=== PATIENT | female | born 1965 | race Caucasian/White ===

== ENCOUNTER 2018-11-10 14:06 | Emergency (ER) | payer MEDICARE, MEDICAID ==
[2018-11-10] MEDS ORDERED: ONDANSETRON HCL INJ/PF 4 MG/2 ML SDV IV ONE (14:47)
[2018-11-10] MEDS ORDERED: FENTANYL CITRATE INJ/PF 100 MCG/2 ML AMPUL IV ONE (14:47)
--- NOTE | 2018-11-10 14:49 | ER Document Report ---
ED Medical Screen (RME) - General Chief Complaint: Flank Pain Stated Complaint: LEFT FLANK PAIN Time Seen by Provider: 11/10/18 14:39 Primary Care Provider: MICHELLE YO [Primary Care Provider] - Follow up as needed Mode of Arrival: Ambulatory Information source: Patient Notes: 53-year-old female presents emergency department with complaints of left flank pain that started last night. Patient states that she feels like she is going to "explode out of the back". She denies any radiation of the pain. She denies any alleviating or exacerbating factors. She states that she began having some dysuria a few hours ago but denies any increased urgency, increased frequency, fever, chills, abdominal pain. She denies a history of kidney stones. I have greeted and performed a rapid initial assessment of this patient. A comprehensive ED assessment and evaluation of the patient, analysis of test results and completion of the medical decision making process will be conducted by additional ED providers. PHYSICAL EXAMINATION: GENERAL: Well-appearing, well-nourished HEAD: Atraumatic, normocephalic. EYES: Pupils equal round extraocular movements intact, conjunctiva are normal. ENT: Nares patent NECK: Normal range of motion LUNGS: No respiratory distress Musculoskeletal: Normal range of motion. L flank tenderness with palpation. NEUROLOGICAL: Normal speech. PSYCH: Normal mood, normal affect. TRAVEL OUTSIDE OF THE [place] IN LAST 30 DAYS: No - Related Data Allergies/Adverse Reactions: No Known Allergies Allergy (Verified 11/10/18 14:07) Past Medical History - Past Medical History Cardiac Medical History: Reports: Hx Atrial Fibrillation Pulmonary Medical History: Reports: Hx Tuberculosis Endocrine Medical History: Reports: Hx Graves' Disease, Hx Hypothyroidism Renal/ Medical History: Denies: Hx Peritoneal Dialysis GI Medical History: Reports: Hx Gastroesophageal Reflux Disease Musculoskeltal Medical History: Reports Hx Arthritis Psychiatric Medical History: Reports: Hx Anxiety, Hx Depression Past Surgical History: Reports: Hx Section, Hx Cholecystectomy - Immunizations Hx Diphtheria, Pertussis, Tetanus Vaccination: No Physical Exam - Vital signs Vitals: Temp Pulse Resp BP Pulse Ox 99.1 F 71 16 115/59 L 100 11/10/18 14:22 11/10/18 14:22 11/10/18 14:22 11/10/18 14:22 11/10/18 14:22 Course - Vital Signs Vital signs: Temp Pulse Resp BP Pulse Ox 99.1 F 71 16 115/59 L 100 11/10/18 14:22 11/10/18 14:22 11/10/18 14:22 11/10/18 14:22 11/10/18 14:22 Doctor's Discharge - Discharge Referrals: LOCALMD,NO [Primary Care Provider] - Follow up as needed
[2018-11-10 15:40] LABS: APPEARANCE,URINE CLOUDY; BILIRUBIN,URINE NEGATIVE (NEGATIVE); COLOR,URINE YELLOW; GLUCOSE, URINE NEGATIVE (NEGATIVE); KETONES,URINE NEGATIVE (NEGATIVE); LEUKOCYTE ESTERASE,URINE MODERATE (NEGATIVE); NITRITE,URINE NEGATIVE (NEGATIVE); PROTEIN,URINE NEGATIVE (NEGATIVE); URINE SPECIFIC GRAVITY 1.014; UROBILINOGEN,URINE NEGATIVE mg/dL (<2.0)
[2018-11-10 15:52] LABS: HEMATOCRIT 34.3 % (36.0-47.0); HEMOGLOBIN 11.5 g/dL (12.0-15.5); MEAN CORPUSCULAR HEMOGLOBIN 29.4 pg (27.0-33.4); MEAN CORPUSCULAR HGB CONC 33.5 g/dL (32.0-36.0); MEAN CORPUSCULAR VOLUME 88 fl (80-97); PLATELET COUNT 313 10^3/uL (150-450); RED BLOOD COUNT 3.91 10^6/uL (3.72-5.28); RED CELL DISTRIBUTION WIDTH 13.9 % (11.5-14.0); WHITE BLOOD COUNT 18.5 10^3/uL (4.0-10.5)
--- NOTE | 2018-11-10 15:52 | RADIOLOGY REPORT (SQ) ---
EXAM DESCRIPTION: CT ABD/PELVIS NO ORAL OR IV COMPLETED DATE/TIME: 11/10/2018 3:24 pm REASON FOR STUDY: left flank pain COMPARISON: None. TECHNIQUE: CT scan of the abdomen and pelvis performed without intravenous or oral contrast. Images reviewed with lung, soft tissue, and bone windows. Reconstructed coronal and sagittal MPR images revi ewed. All images stored on PACS. All CT scanners at this facility use dose modulation, iterative reconstruction, and/or weight based d osing when appropriate to reduce radiation dose to as low as reasonably achievable (ALARA). [facility]: Dose Right [facility]: CareDose [facility]: Dose Right [facility]: Teradose 4D [facility]: [employer] RADIATION DOSE: CT Rad equipment meets quality standard of care and radiation dose reduction techniq ues were employed. CTDIvol: 5.0 mGy. DLP: 257 mGy-cm.mGy. LIMITATIONS: None. FINDINGS: LOWER CHEST: Acinar type infiltrates in lower lobes pneumonia not excluded. NON-CONTRASTED LIVER, SPLEEN, ADRENALS: LIVER: No abnormality. SPLEEN: No abnormality. ADRENALS: No abnormality. PANCREAS: No abnormality. . GALLBLADDER: Status post cholecystectomy. . RIGHT KIDNEY AND URETER: No abnormality. LEFT KIDNEY AND URETER: There is dilatation of the left upper collecting system and left ureter down to a 5 mm distal left ureteral calculus. AORTA AND RETROPERITONEUM: No aneurysm. No retroperitoneal masses or adenopathy. BOWEL AND PERITONEAL CAVITY: Dilatation of the distal esophagus with prominent air-fluid level consis tent with esophageal reflux. Lap band encircling upper stomach. PELVIS, BLADDER, AND ABDOMINAL WALL:No abnormal masses. No free fluid. Bladder normal. BONES: Lumbar spondylosis. Degenerative distal to the L3-S1. IMPRESSION: 1. Evidence left hydronephrosis and left hydroureter down to 5 mm distal left ureteral calculus. 2. Status post lap band with mild dilatation of the distal esophagus and moderate amount of fluid in the esophagus consistent with esophageal reflux. 3. Bibasilar infiltrates with pneumoni a not excluded. COMMENT: Quality ID # [id number]: Final reports with documentation of one or more dose reduction techniques (e.g., Automated exposure control, adjustment of the mA and/or kV according to patient size, use of iterative reconstruction technique) TECHNICAL DOCUMENTATION: JOB ID: [id number] SC-69 2010 [employer]- All Rights Reserved Reading location - IP/workstation name: [email or web address]
[2018-11-10 15:54] LABS: ALANINE AMINOTRANSFERASE 17 U/L (9-52); ALBUMIN 3.8 g/dL (3.5-5.0); ALKALINE PHOSPHATASE 56 U/L (38-126); ANION GAP 10 (5-19); ASPARTATE AMINO TRANSFERASE 10 U/L (14-36); BILIRUBIN,DIRECT 0.2 mg/dL (0.0-0.4); BILIRUBIN,TOTAL 0.6 mg/dL (0.2-1.3); BLOOD UREA NITROGEN 15 mg/dL (7-20); CALCIUM 9.3 mg/dL (8.4-10.2); CARBON DIOXIDE 22 mmol/L (22-30); CHLORIDE 106 mmol/L (98-107); GLUCOSE 80 mg/dL (75-110); LIPASE 67.3 U/L (23-300); POTASSIUM 4.1 mmol/L (3.6-5.0); SODIUM 137.6 mmol/L (137-145); TOTAL PROTEIN 6.3 g/dL (6.3-8.2)
[2018-11-10] MEDS ORDERED: KETOROLAC TROMETHAMINE INJ/PF 30 MG/1 ML SDV IV ONE (16:10)
[2018-11-10] MEDS ORDERED: TAMSULOSIN HCL 0.4 MG CAP.SR.24H PO ONE (16:11)
[2018-11-10 16:20] LABS: ABSOLUTE LYMPHOCYTES# (MANUAL) 0.7 10^3/uL (0.5-4.7); ABSOLUTE MONOCYTES # (MANUAL) 0.6 10^3/uL (0.1-1.4); ABSOLUTE NEUTROPHILS# (MANUAL) 17.2 10^3/uL (1.7-8.2); BASOPHILS % (MANUAL) 0 % (0-2); EOSINOPHILS % (MANUAL) 0 % (0-6); LYMPHOCYTES % (MANUAL) 4 % (13-45); MONOCYTES % (MANUAL) 3 % (3-13); PLATELET COMMENT ADEQUATE; SEGMENTED NEUTROPHILS % (MAN) 93 % (42-78); TOTAL CELLS COUNTED 100
--- NOTE | 2018-11-10 16:45 | ER Document Report ---
ED General - General Chief Complaint: Flank Pain Stated Complaint: LEFT FLANK PAIN Time Seen by Provider: 11/10/18 14:39 Primary Care Provider: MICHELLE YO [NO LOCAL MD] - Follow up as needed Mode of Arrival: Ambulatory TRAVEL OUTSIDE OF THE [place] IN LAST 30 DAYS: No - HPI Notes: Patient presents emergency department for evaluation of left flank pain. It started in the middle the night. It is sharp and constant. It does not radiate. She has had nausea and vomiting. She has broke out in hot sweats. She is never had anything similar. No personal history of kidney stones, positive family history of kidney stones in siblings. - Related Data Allergies/Adverse Reactions: No Known Allergies Allergy (Verified 11/10/18 14:07) Past Medical History - General Information source: Patient - Social History Smoking Status: Never Smoker Family History: Other - Kidney stones Patient has suicidal ideation: No Patient has homicidal ideation: No - Past Medical History Cardiac Medical History: Reports: Hx Atrial Fibrillation Pulmonary Medical History: Reports: Hx Tuberculosis Endocrine Medical History: Reports: Hx Graves' Disease, Hx Hypothyroidism Renal/ Medical History: Denies: Hx Peritoneal Dialysis GI Medical History: Reports: Hx Gastroesophageal Reflux Disease Musculoskeletal Medical History: Reports Hx Arthritis Psychiatric Medical History: Reports: Hx Anxiety, Hx Depression Past Surgical History: Reports: Hx Section, Hx Cholecystectomy - Immunizations Hx Diphtheria, Pertussis, Tetanus Vaccination: No Review of Systems - Review of Systems Constitutional: No symptoms reported EENT: No symptoms reported Cardiovascular: No symptoms reported Respiratory: No symptoms reported Gastrointestinal: Nausea, Vomiting Genitourinary: Flank pain Skin: No symptoms reported Neurological/Psychological: No symptoms reported Physical Exam - Vital signs Vitals: Temp Pulse Resp BP Pulse Ox 99.1 F 71 16 115/59 L 100 11/10/18 14:22 11/10/18 14:22 11/10/18 14:22 11/10/18 14:22 11/10/18 14:22 - Notes Notes: Patient is awake, alert, mild to moderate distress secondary to pain. As neuropsych atraumatic. Pupils equal round reactive to light. Nares are patent, oral mucosa is moist. Neck is supple without thyromegaly or adenopathy. Heart regular rate and rhythm. Lungs clear all station bilaterally. Abdomen soft nontender with normoactive bowel sounds. Examination of the spine is no midline tenderness or step-off. She has paraspinal musculature tenderness on the left at approximately L3-L4 with associated spasm. Negative straight leg raise bilaterally. Strength +5/5 bilateral lower extremities. Sensation is intact, reflexes are symmetrical. Skin is warm and dry. Course - Re-evaluation Re-evalutation: 11/10/18 16:43 Patient presents to the emergency department for evaluation of left flank pain. Her findings are most consistent with a kidney stone. She does have moderate amount of leukocyte esterase in her urine so it was sent for culture. Overall I do believe this is all related to stone, however. She was feeling somewhat improved here with medications. We will send her home with anti-inflammatories, pain medication, nausea medication, Flomax. We did discuss first dose hypotension that can occur with the Flomax. She voiced understanding to this and was discharged. - Vital Signs Vital signs: Temp Pulse Resp BP Pulse Ox 99.1 F 71 16 115/59 L 100 11/10/18 14:22 11/10/18 14:22 11/10/18 14:22 11/10/18 14:22 11/10/18 14:22 - Laboratory Result Diagrams: 11/10/18 15:09 11/10/18 15:09 Laboratory results interpreted by me: 11/10/18 11/10/18 11/10/18 15:09 15:09 15:09 WBC 18.5 H Hgb 11.5 L Hct 34.3 L Seg Neuts % (Manual) 93 H Lymphocytes % (Manual) 4 L Abs Neuts (Manual) 17.2 H Est GFR (Non-Af Amer) 50 L AST 10 L Urine Blood LARGE H Ur Leukocyte Esterase MODERATE H Discharge - Discharge Clinical Impression: Ureteric stone Condition: Good Disposition: HOME, SELF-CARE Instructions: Kidney Stone ([facility]) Additional Instructions: Take medications as prescribed. Watch for dizziness with the Flomax, get up slowly. Follow-up with [facility]. They can be reached at [phone]. Return to the emergency department with worsening or new concerning symptoms of any sort. Referrals: LOCALMD,NO [NO LOCAL MD] - Follow up as needed
[2018-11-10 17:29] VITALS: BP 104/60
== END 2018-11-10 17:30 | disposition home or self-care (01) ==
LOC: ER 14:06
DX: N13.2 Hydronephrosis with renal and ureteral calculous obstruction (principal); R11.2 Nausea with vomiting, unspecified; R10.9 Unspecified abdominal pain; R61 Generalized hyperhidrosis; M62.830 Muscle spasm of back; Z90.49 Acquired absence of other specified parts of digestive tract; Z87.19 Personal history of other diseases of the digestive system
CPT/HCPCS: 99284; 96374; 96375; 36415; 87086; 83690; 85025; 87088; 80053; 81001; 87186; 74176; J3010; J1885; A9270; J2405

== ENCOUNTER 2019-01-13 21:41 | Emergency (ER) | payer MEDICARE, MEDICAID ==
--- NOTE | 2019-01-13 22:53 | ER Document Report ---
ED General - General Chief Complaint: Passed Out Prior to Arrival Stated Complaint: SYNCOPE/FALL Time Seen by Provider: 01/13/19 21:57 Primary Care Provider: LESLY GALINDO MD [Primary Care Provider] - Follow up in 3-5 days Notes: Patient is a pleasant 53-year-old female presents with complaint of syncopal episode. She said that she is feeling weak and then passed out. She says she fell and hit her head. She also landed on her left ribs. She has some pain to the back of her head. No new neck pain. She has says she has some chronic back and neck pain which is unchanged does not feel that she injured either her neck or back. Paramax arrived her blood pressure was low. They gave her an IV fluid bolus and this corrected her blood pressure. She says she does have a history of some recurrent hypotension due to thyroid issues as well as her hypokalemia. She admits that she does not always take her medications and that she is not very compliant with her medications. She admits that she has not been taking her potassium as she is supposed to be. She denies any fevers. No recent infections. No chest pain other than the pain over her left ribs from where she fell. No shortness of breath. She denies feeling palpitations or feel like her heart was racing. She does have a history of atrial fibrillation but is not currently on anticoagulation. She denies headache before the fall. TRAVEL OUTSIDE OF THE [place] IN LAST 30 DAYS: No - Related Data Allergies/Adverse Reactions: No Known Allergies Allergy (Verified 11/10/18 14:07) Past Medical History - Social History Smoking Status: Unknown if Ever Smoked Frequency of alcohol use: None Drug Abuse: None Family History: Other - Kidney stones - Past Medical History Cardiac Medical History: Reports: Hx Atrial Fibrillation Pulmonary Medical History: Reports: Hx Tuberculosis Endocrine Medical History: Reports: Hx Graves' Disease, Hx Hypothyroidism Renal/ Medical History: Denies: Hx Peritoneal Dialysis GI Medical History: Reports: Hx Gastroesophageal Reflux Disease Musculoskeletal Medical History: Reports Hx Arthritis Psychiatric Medical History: Reports: Hx Anxiety, Hx Depression Past Surgical History: Reports: Hx Section, Hx Cholecystectomy - Immunizations Hx Diphtheria, Pertussis, Tetanus Vaccination: No Review of Systems - Review of Systems Notes: My Normal Review Basic REVIEW OF SYSTEMS: CONSTITUTIONAL : Denies fever, chills, or sweats. Denies recent illness. EENT: Denies eye, ear, throat, or mouth pain or symptoms. Denies nasal or sinus congestion. CARDIOVASCULAR: Denies chest pain. RESPIRATORY: Denies cough, cold, or chest congestion. Denies shortness of breath, difficulty breathing, or wheezing. GASTROINTESTINAL: Denies abdominal pain. Denies nausea, vomiting, or diarrhea. MUSCULOSKELETAL: Pain over left ribs. SKIN: Denies rash or skin lesions. HEMATOLOGIC : Denies easy bruising or bleeding. NEUROLOGICAL: Syncopal episode. Denies weakness or paralysis or loss of use of either side. Denies problems with gait or speech. Denies sensory or motor loss. ALL OTHER SYSTEMS REVIEWED AND NEGATIVE. Physical Exam - Vital signs Vitals: Temp Pulse Resp BP Pulse Ox 98.4 F 83 16 129/72 H 100 01/13/19 21:49 01/13/19 21:49 01/13/19 21:49 01/13/19 21:49 01/13/19 21:49 - Notes Notes: General Appearance: Well nourished, alert, cooperative, no acute distress, no obvious discomfort. Vitals: reviewed, See vital signs table. Head: Small laceration to posterior occiput. Eyes: PERRL, EOMI, Conjuctiva clear Mouth: No decreasd moisture Neck: No cervical spinal tenderness to palpation. Full range of motion without difficulty. Chest wall: Pain to palpation over left lateral ribs. No bruising or swelling over chest wall. Lungs: No wheezing, No rales, No rhonci, No accessory muscle use, good air exchange bilaterally. Heart: Normal rate, Regular rythm, No murmur, no rub Abdomen: Normal BS, soft, No rigidity, No abdominal tenderness, No guarding, no rebound Extremities: strength 5/5 in all extremities, good pulses in all extremities, no swelling or tenderness in the extremities, no edema. Skin: warm, dry, appropriate color, no rash Neuro: speech clear, oriented x 3, normal affect, responds appropriately to questions. Cranial nerves II through XII are intact. Distal sensation intact. Patient moves all extremities without difficulty. Distal sensation intact. Course - Re-evaluation Re-evalutation: 01/14/19 02:12 I have reevaluated patient. She continues to do well. She has a bit more time for her potassium infusion is completed. 04/16/19 06:47 Patient's potassium infusion was completed. She is feeling improved. She herself says that she has a history of recurrent hypotension due to her both her thyroid also because potassium gets low. I have repleted her potassium. It appears that her syncopal episode occurred because of hypotension. This r esolved with the 250 mL bolus from the paramedics and her blood pressure has been normal here. CT scan of the head was negative. She has a small abrasion of the scalp which does not require any suturing. At this time patient is feeling improved. I informed her the importance of taking her potassium as patient admits that she is not very compliant with this. I informed her to follow-up closely with her doctor for reevaluation and recheck her potassium this week. I encouraged her return to ER immediately if she has difficulty breathing, vomiting, fevers, recurrent passing out episodes. Patient does have some rib pain but her x-rays negative. I encouraged her to make sure she takes in deep breaths to help avoid involvement of pneumonia or infection. She agrees with plan and will be discharged home. Dictation of this chart was performed using voice recognition software; therefore, there may be some unintended grammatical errors. - Vital Signs Vital signs: Temp Pulse Resp BP Pulse Ox 98.4 F 83 19 106/58 L 100 01/14/19 04:20 01/13/19 21:49 01/14/19 04:00 01/14/19 04:00 01/14/19 04:00 - Laboratory Result Diagrams: 01/13/19 23:00 01/13/19 23:00 Laboratory results interpreted by me: 01/13/19 01/13/19 01/13/19 23:00 23:00 23:00 Hgb 11.5 L Hct 33.7 L RDW 14.5 H Potassium 2.9 L* Magnesium 1.5 L TSH 6.82 H Free T3 pg/mL 1.86 L Urine Blood Ur Leukocyte Esterase 01/13/19 23:00 Hgb Hct RDW Potassium Magnesium TSH Free T3 pg/mL Urine Blood LARGE H Ur Leukocyte Esterase SMALL H - EKG Interpretation by Me Additional EKG results interpreted by me: 01/13/19 22:53 EKG is reviewed and interpreted by me. EKG shows sinus rhythm with a rate of [address] segment elevation or depression. No ischemic T wave inversions. [place] interval, QRS duration, QT intervals are within normal range. No old EKG available for comparison. Discharge - Discharge Clinical Impression: Hypokalemia Syncope Qualifiers: Syncope type: unspecified Qualified Code(s): R55 - Syncope and collapse UTI (urinary tract infection) Qualifiers: Urinary tract infection type: site unspecified Hematuria presence: without hem aturia Qualified Code(s): N39.0 - Urinary tract infection, site not specified Condition: Good Disposition: HOME, SELF-CARE Additional Instructions: Please take your supplemental potassium. Please return to the ER if you have recurrent passing out episodes, severe headache, fevers, vomiting, or feel unwell. Please take the antibiotic as prescribed. Prescriptions: RX: Cephalexin Monohydrate [Keflex 500 mg Capsule] 500 mg PO BID 5 Days #10 capsule Referrals: LESLY GALINDO MD [Primary Care Provider] - Follow up in 3-5 days
[2019-01-13 23:19] LABS: ABSOLUTE LYMPHOCYTES (AUTO) 1.7 10^3/uL (0.5-4.7); ABSOLUTE MONOCYTES (AUTO) 0.4 10^3/uL (0.1-1.4); ABSOLUTE NEUT (AUTO) 5.3 10^3/uL (1.7-8.2); BASOPHILS % (AUTO) 0.6 % (0-2); EOSINOPHILS % (AUTO) 0.2 % (0-6); HEMATOCRIT 33.7 % (36.0-47.0); HEMOGLOBIN 11.5 g/dL (12.0-15.5); MEAN CORPUSCULAR HEMOGLOBIN 30.2 pg (27.0-33.4); MEAN CORPUSCULAR HGB CONC 34.2 g/dL (32.0-36.0); MEAN CORPUSCULAR VOLUME 88 fl (80-97); MONOCYTES % (AUTO) 5.4 % (3-13); PLATELET COUNT 337 10^3/uL (150-450); RED BLOOD COUNT 3.81 10^6/uL (3.72-5.28); RED CELL DISTRIBUTION WIDTH 14.5 % (11.5-14.0); SEGMENTED NEUTROPHILS % (AUTO) 70.8 % (42-78); TOTAL CELLS COUNTED % (AUTO) 100 %; WHITE BLOOD COUNT 7.4 10^3/uL (4.0-10.5)
[2019-01-13 23:25] LABS: AMORPHOUS SEDIMENT,URINE TRACE /HPF; APPEARANCE,URINE SLIGHTLY-CLOUDY; BILIRUBIN,URINE NEGATIVE (NEGATIVE); COLOR,URINE YELLOW; GLUCOSE, URINE NEGATIVE (NEGATIVE); KETONES,URINE NEGATIVE (NEGATIVE); LEUKOCYTE ESTERASE,URINE SMALL (NEGATIVE); NITRITE,URINE NEGATIVE (NEGATIVE); PROTEIN,URINE NEGATIVE (NEGATIVE); URINE SPECIFIC GRAVITY 1.008; UROBILINOGEN,URINE NEGATIVE mg/dL (<2.0)
[2019-01-13 23:38] LABS: ALANINE AMINOTRANSFERASE 13 U/L (9-52); ALBUMIN 3.6 g/dL (3.5-5.0); ALKALINE PHOSPHATASE 56 U/L (38-126); ANION GAP 11 (5-19); ASPARTATE AMINO TRANSFERASE 16 U/L (14-36); BILIRUBIN,DIRECT 0.2 mg/dL (0.0-0.4); BILIRUBIN,TOTAL 0.2 mg/dL (0.2-1.3); BLOOD UREA NITROGEN 16 mg/dL (7-20); CALCIUM 9.1 mg/dL (8.4-10.2); CARBON DIOXIDE 22 mmol/L (22-30); CHLORIDE 105 mmol/L (98-107); GLUCOSE 88 mg/dL (75-110); SODIUM 137.7 mmol/L (137-145); TOTAL PROTEIN 6.6 g/dL (6.3-8.2)
[2019-01-13 23:46] LABS: POTASSIUM 2.9 mmol/L (3.6-5.0)
--- NOTE | 2019-01-13 23:56 | RADIOLOGY REPORT (SQ) ---
EXAM DESCRIPTION: CT HEAD WITHOUT IV CONTRAST COMPLETED DATE/TME: 01/13/2019 22:06 CLINICAL HISTORY: 53 years, Female, Passed Out COMPARISON: None. TECHNIQUE: 184 Images stored on PACS. All CT scanners at this facility use dose modulation, iterative reconstruction, and/or weight based dosing when appropriate to reduce radiation dose to as low as reasonably achievable (ALARA). [facility]: Dose Right [facility]: CareDose [facility]: Dose Right [facility]: Teradose 4D [facility]: [employer] LIMITATIONS: None. FINDINGS: The globes are intact. The paranasal sinuses and mastoid air cells are unremarkable. No displaced or depressed skull fracture. No intra or extra-axial hemorrhage. CT is limited for evaluation of acute infarct. There is no CT evidence for large or territorial acute infarct. No mass. No midline shift IMPRESSION: Negative exam TECHNICAL DOCUMENTATION: Quality ID # 436: Final reports with documentation of one or more dose reduction techniques (e.g., Automated exposure control, adjustment of the mA and/or kV according to patient size, use of iterative reconstruction technique) copyright 2011 [employer]- All Rights Reserved
[2019-01-13] MEDS ORDERED: POTASSIUM CHLORIDE 10 MEQ CAPSULE.ER PO ONE (23:57)
[2019-01-13] MEDS ORDERED: POTASSI CL 20 MEQ/50 ML RIDER 20 MEQ/50 ML RTUPB IV ONE (23:57)
[2019-01-13 23:58] LABS: FREE T3 1.86 pg/mL (2.77-5.27); FREE T4 (FREE THYROXINE) 0.84 ng/dL (0.78-2.19)
[2019-01-14] MEDS ORDERED: POTASSIUM CHLORIDE 20 MEQ PACKET PO ONE
[2019-01-14 00:12] LABS: THYROID STIMULATING HORMONE 6.82 uIU/mL (0.47-4.68)
--- NOTE | 2019-01-14 00:13 | RADIOLOGY REPORT (SQ) ---
EXAM DESCRIPTION: XR RIBS UNILATERAL WITH CHEST COMPLETED DATE/TME: 01/13/2019 22:06 CLINICAL HISTORY: 53 years, Female, trauma COMPARISON: None. NUMBER OF VIEWS: 3 TECHNIQUE: Frontal view chest and 2 views of the left ribs LIMITATIONS: Artifact FINDINGS: The patient's left EKG lead was not removed and overlies the left hemithorax, limiting the exam. Osteopenia. As visualized the lungs are clear. No pneumothorax. Gastric band procedure/device is noted. No discrete left rib fracture. Soft tissues are unremarkable IMPRESSION: Overlying artifact. Osteopenia. No discrete left rib fracture. copyright 2010 [employer]- All Rights Reserved
[2019-01-14] MEDS ORDERED: FENTANYL CITRATE INJ/PF 100 MCG/2 ML AMPUL IV ONE (00:30)
[2019-01-14] MEDS: MAGNESIUM SULFATE/D5W 1 GM/100 ML RTUPB IV SCH ×2 (01:19→02:47)
[2019-01-14 04:31] VITALS: BP 106/58
--- NOTE | 2019-01-14 10:15 | EKG REPORT ---
SEVERITY:- NORMAL ECG - SINUS RHYTHM : Confirmed by: Alka Garcia MD 14-Jan-2019 10:14:02
== END 2019-01-14 04:31 | disposition home or self-care (01) ==
LOC: ER 21:41
DX: R55 Syncope and collapse (principal); N39.0 Urinary tract infection, site not specified; E87.6 Hypokalemia; R53.1 Weakness; W19.XXXA Unspecified fall, initial encounter; I95.9 Hypotension, unspecified; Z79.899 Other long term (current) drug therapy
CPT/HCPCS: 93005; 99285; 96375; 96365; 96366; 96368; 36415; 87086; 84439; 83735; 84443; 85025; 80053; 81001; 84484; 84481; 71101; 70450; 93010; J3010; J3475; J3480; J3490

== ENCOUNTER → 2019-03-07 | Outpatient (CLI) | payer MEDICARE, MEDICAID ==
[2019-03-07 10:18] LABS: APPEARANCE,URINE CLOUDY; BILIRUBIN,URINE NEGATIVE (NEGATIVE); COLOR,URINE YELLOW; GLUCOSE, URINE NEGATIVE (NEGATIVE); KETONES,URINE NEGATIVE (NEGATIVE); LEUKOCYTE ESTERASE,URINE TRACE (NEGATIVE); NITRITE,URINE NEGATIVE (NEGATIVE); PROTEIN,URINE 30 mg/dL (NEGATIVE); URINE SPECIFIC GRAVITY 1.023; UROBILINOGEN,URINE NEGATIVE mg/dL (<2.0)
[2019-03-07 10:33] LABS: ANION GAP 10 (5-19); BLOOD UREA NITROGEN 12 mg/dL (7-20); CALCIUM 9.8 mg/dL (8.4-10.2); CARBON DIOXIDE 21 mmol/L (22-30); CHLORIDE 112 mmol/L (98-107); GLUCOSE 81 mg/dL (75-110)
[2019-03-07 10:46] LABS: URINE CREATININE 233.8 mg/dL (15-278); URINE POTASSIUM 34.5 mmol/L (22-164)
[2019-03-08 14:17] LABS: URINE CREATININE 198.6 mg/dL (15-278); URINE POTASSIUM 23.1 mmol/L (22-164)
[2019-03-08 14:18] LABS: 24 HOUR URINE POTASSIUM RESULT 6.9 mmol/day (25-125); 24 HR URINE CREAT RESULT 0.6 mg/day (0.8-2.0)
[2019-03-11 13:03] LABS: ALDOSTERONE RENIN RATIO 2 6.7 (0.0-30.0); RENIN ACTIVITY 0.475 ng/mL/hr (0.167-5.38)
== END ==
LOC: OD 08:26
PROVIDERS: ATTEND Internal Medicine Nephrology
DX: E87.5 Hyperkalemia (principal); E83.42 Hypomagnesemia; N18.9 Chronic kidney disease, unspecified; N39.0 Urinary tract infection, site not specified
CPT/HCPCS: 36415; 80048; 81001; 82088; 82570; 83735; 83930; 83935; 84133; 84244; 84300; 87086

== ENCOUNTER → 2019-06-12 | Outpatient (CLI) | payer MEDICARE, MEDICAID ==
[2019-06-12 10:21] LABS: ANION GAP 13 (5-19); BLOOD UREA NITROGEN 16 mg/dL (7-20); CALCIUM 9.4 mg/dL (8.4-10.2); CARBON DIOXIDE 18 mmol/L (22-30); CHLORIDE 112 mmol/L (98-107); GLUCOSE 83 mg/dL (75-110); POTASSIUM 3.5 mmol/L (3.6-5.0)
== END ==
LOC: OD 08:30
PROVIDERS: ATTEND Internal Medicine Nephrology
DX: E87.6 Hypokalemia (principal); N28.9 Disorder of kidney and ureter, unspecified; E87.2 Acidosis; E83.42 Hypomagnesemia
CPT/HCPCS: 36415; 80048; 82306; 83735; 86038; 86235; 86430

== ENCOUNTER → 2020-05-28 | Outpatient (CLI) | payer MEDICARE, MEDICAID | LOC: OD 08:25 | PROVIDERS: ATTEND Physician Assistant Medical | DX: E87.6 Hypokalemia (principal) | CPT/HCPCS: 36415; 84132 ==

== ENCOUNTER → 2020-07-09 | Outpatient (CLI) | payer MEDICARE, MEDICAID ==
--- NOTE | 2020-07-09 14:29 | RADIOLOGY REPORT (SQ) ---
EXAM DESCRIPTION: CT ABD/PELVIS WITH IV ONLY IMAGES COMPLETED DATE/TIME: 07/09/2020 1:46 pm REASON FOR STUDY: (R10.2)PELVIC AND PERINEAL PAIN N93.9 ABNORMAL UTERINE AND VAGINAL BLEEDING, UNSP ECIFIED R10.2 PELVIC AND PERINEAL PAIN E28.0 ESTROGEN EXCESS COMPARISON: CT abdomen pelvis 11/10/2018 TECHNIQUE: CT scan of the abdomen and pelvis performed using helical scanning technique with dynamic intravenous contrast injection. No oral contrast. Images reviewed with lung, soft tissue, and bone windows. Reconstructed coronal and sagittal MPR images reviewed. Delayed images for evaluation of the urinary system also acquired. All images stored on PACS. All CT scanners at this facility use dose modulation, iterative reconstruction, and/or weight based d osing when appropriate to reduce radiation dose to as low as reasonably achievable (ALARA). [facility]: Dose Right [facility]: CareDose [facility]: Dose Right [facility]: Teradose 4D [facility]: [employer] CONTRAST TYPE AND DOSE: contrast/concentration: Isovue 350.00 mmol/ml; Total Contrast Delivered: 69. 0 ml; Total Saline Delivered: 65.0 ml RENAL FUNCTION: Creatinine 0.8 RADIATION DOSE: CT Rad equipment meets quality standard of care and radiation dose reduction techniq ues were employed. CTDIvol: 4.4 - 4.4 mGy. DLP: 457 mGy-cm.. LIMITATIONS: No oral contrast FINDINGS: LOWER CHEST: No significant findings. No nodules or infiltrates. LIVER: Normal size. No masses. No dilated ducts. SPLEEN: Normal size. No focal lesions. PANCREAS: No masses. No significant calcifications. No adjacent inflammation or peripancreatic fluid collections. Pancreatic duct not dilated. GALLBLADDER: Surgically absent ADRENAL GLANDS: No significant masses or asymmetry. RIGHT KIDNEY AND URETER: No solid masses. No significant calcifications. No hydronephrosis or hyd roureter. LEFT KIDNEY AND URETER: No solid masses. No significant calcifications. No hydronephrosis or hydr oureter. AORTA AND VESSELS: No aneurysm. No dissection. Renal arteries, SMA, celiac without stenosis. RETROPERITONEUM: No retroperitoneal adenopathy, hemorrhage or masses. BOWEL AND PERITONEAL CAVITY: No masses or inflammatory changes. No free fluid or peritoneal masses. APPENDIX: Normal. PELVIS: Uterus 9 x 5 x 6 cm in size, endometrial canal 1 cm in thickness. No cul-de-sac free fluid. Bladder decompressed. Left ovary 2.6 x 1.4 cm. Right ovary 4.4 x 2.5 cm in size with a questionable 2 cm cyst (was about 2.5 x 1.5 cm on 11/10/2018). Consider transabdominal and endovaginal pelvic ultrasound for followup. No free pelvic fluid. No pelvic adenopathy or masses. No adnexal enhancement worrisome for pelvic c ongestion syndrome ABDOMINAL WALL: No masses. No hernias. BONES: No significant or acute findings. OTHER: Patient has a lap band prosthesis at the GE junction. Distal esophagus is distended with flui d. This is this is similar compared to 11/10/2018 IMPRESSION: Enlarged right ovary, consider follow-up transabdominal and endovaginal pelvic ultrasoun d TECHNICAL DOCUMENTATION: JOB ID: [id number] Quality ID # 436: Final reports with documentation of one or more dose reduction techniques (e.g., Au tomated exposure control, adjustment of the mA and/or kV according to patient size, use of iterative reconstruction technique) 2010 [employer]- All Rights Reserved Reading location - IP/workstation name: [email or web address]
== END ==
LOC: RAD 13:07
PROVIDERS: ATTEND Student in an Organized Health Care Education/Training Program
DX: N83.8 Other noninflammatory disorders of ovary, fallopian tube and broad ligament (principal); R10.2 Pelvic and perineal pain
CPT/HCPCS: 74177; 82565

== ENCOUNTER 2020-09-11 20:40 | Emergency (ER) | payer MEDICARE, MEDICAID ==
[2020-09-11] MEDS ORDERED: HYDROCODONE/ACETAMINOPHEN 5-325 MG (6 TAB/ER DISP) PO PRN (21:43)
--- NOTE | 2020-09-11 21:43 | ER Document Report ---
ED Medical Screen (RME) - General Chief Complaint: Arm Injury Stated Complaint: LEFT ARM INJURY Time Seen by Provider: 09/11/20 21:25 Primary Care Provider: MINNIE DAVIS MD [Primary Care Provider] - Follow up as needed TRAVEL OUTSIDE OF THE [place] IN LAST 30 DAYS: No - HPI Notes: Patient is a 55 y/o female who presents s/p left wrist injury that occurred just prior to arrival. Patient states she was walking when she tripped and landed on her outstretched hand. She reports pain to her left wrist and forearm. Patient denies any preceding symptoms and any other injuries. She does not take any blood thinners. - Related Data Allergies/Adverse Reactions: No Known Allergies Allergy (Verified 11/10/18 14:07) Past Medical History - Past Medical History Cardiac Medical History: Reports: Hx Atrial Fibrillation Pulmonary Medical History: Reports: Hx Tuberculosis Endocrine Medical History: Reports: Hx Graves' Disease, Hx Hypothyroidism Renal/ Medical History: Denies: Hx Peritoneal Dialysis GI Medical History: Reports: Hx Gastroesophageal Reflux Disease Musculoskeltal Medical History: Reports Hx Arthritis Psychiatric Medical History: Reports: Hx Anxiety, Hx Depression Past Surgical History: Reports: Hx Section, Hx Cholecystectomy - Immunizations Hx Diphtheria, Pertussis, Tetanus Vaccination: No Physical Exam - Vital signs Vitals: Temp Pulse Resp BP Pulse Ox 98.4 F 83 20 144/72 H 98 09/11/20 21:15 09/11/20 21:15 09/11/20 21:15 09/11/20 21:15 09/11/20 21:15 - Cardiovascular Pulses: Normal: Brachial, Radial - Extremities Wrist: Tender, Deformity, Ecchymosis Course - Re-evaluation Re-evalutation: I have greeted and performed a rapid initial assessment of this patient. A comprehensive ED assessment and evaluation of the patient, analysis of test results and completion of medical decision making process will be conducted by an additional ED providers. - Vital Signs Vital signs: Temp Pulse Resp BP Pulse Ox 98.4 F 83 20 144/72 H 98 09/11/20 21:15 09/11/20 21:15 09/11/20 21:15 09/11/20 21:15 09/11/20 21:15 Doctor's Discharge - Discharge Referrals: MINNIE DAVIS MD [Primary Care Provider] - Follow up as needed
[2020-09-11] MEDS ORDERED: HYDROCODONE/ACETAMINOPHEN 5-325 MG TABLET PO ONE (21:44)
--- NOTE | 2020-09-11 22:23 | RADIOLOGY REPORT (SQ) ---
EXAM DESCRIPTION: WRIST LEFT 3 VIEWS CLINICAL HISTORY: 55 years Female, left wrist injury COMPARISON: None. FINDINGS: Fracture of the distal radial metaphysis is identified and there is a vertical component extending into the articular surface. There is apex volar angulation. Nondisplaced ulnar styloid fracture is also seen. Bone mineralization is diminished. Soft tissue swelling is present. IMPRESSION: Intra-articular fracture of the left radial metaphysis with apex volar angulation. Nondisplaced ulnar styloid fracture.
--- NOTE | 2020-09-11 22:24 | RADIOLOGY REPORT (SQ) ---
EXAM DESCRIPTION: FOREARM LEFT, two views CLINICAL HISTORY: 55 years Female, left arm injury COMPARISON: None. FINDINGS: Comminuted intra-articular fracture of the distal radial metaphysis is noted with impaction and apex volar angulation. The proximal radius and ulna are intact and the elbow joint appears normal. There is soft tissue swelling at the wrist. IMPRESSION: Comminuted intra-articular fracture of the distal radial metaphysis with apex four angulation. No proximal fracture. The elbow appears normal.
--- NOTE | 2020-09-12 00:40 | ER Document Report ---
ED Extremity Problem, Upper - General Chief Complaint: Wrist Injury Stated Complaint: LEFT ARM INJURY Time Seen by Provider: 09/11/20 21:25 Primary Care Provider: MINNIE DAVIS MD [ACTIVE STAFF] - Follow up as needed TRAVEL OUTSIDE OF THE [place] IN LAST 30 DAYS: No - HPI Notes: Patient is a 55 y/o female who presents s/p left wrist injury that occurred just prior to arrival. Patient states she was walking when she tripped and landed on her outstretched hand. She reports pain to her left wrist and forearm. Patient denies any preceding symptoms and any other injuries. She does not take any blood thinners. - Related Data Allergies/Adverse Reactions: No Known Allergies Allergy (Verified 11/10/18 14:07) Past Medical History - General Information source: Patient - Social History Smoking Status: Unknown if Ever Smoked Family History: Other Patient has homicidal ideation: No - Past Medical History Cardiac Medical History: Reports: Hx Atrial Fibrillation Pulmonary Medical History: Reports: Hx Tuberculosis Endocrine Medical History: Reports: Hx Graves' Disease, Hx Hypothyroidism Renal/ Medical History: Denies: Hx Peritoneal Dialysis GI Medical History: Reports: Hx Gastroesophageal Reflux Disease Musculoskeletal Medical History: Reports Hx Arthritis Psychiatric Medical History: Reports: Hx Anxiety, Hx Depression Past Surgical History: Reports: Hx Section, Hx Cholecystectomy - Immunizations Hx Diphtheria, Pertussis, Tetanus Vaccination: No Review of Systems - Review of Systems Constitutional: No symptoms reported EENT: No symptoms reported Cardiovascular: No symptoms reported Respiratory: No symptoms reported Gastrointestinal: No symptoms reported Genitourinary: No symptoms reported Female Genitourinary: No symptoms reported Musculoskeletal: See HPI Skin: No symptoms reported Hematologic/Lymphatic: No symptoms reported Neurological/Psychological: No symptoms reported Physical Exam - Vital signs Vitals: Temp Pulse Resp BP Pulse Ox 98.4 F 83 20 144/72 H 98 09/11/20 21:15 09/11/20 21:15 09/11/20 21:15 09/11/20 21:15 09/11/20 21:15 - Notes Notes: PHYSICAL EXAMINATION: GENERAL: Well-appearing, well-nourished and in no acute distress. HEAD: Atraumatic, normocephalic. EYES: sclera anicteric, conjunctiva are normal. ENT: Moist mucous membranes. NECK: Normal range of motion LUNGS: Normal work of breathing HEART: 2+ radial pulses bilaterally EXTREMITIES: Obvious deformity to the left wrist with tenderness, ecchymosis and swelling. Limited ROM of the left wrist secondary to pain. Sensation intact to the left upper extremity. Full ROM of the left fingers. no pitting or edema. No cyanosis. NEUROLOGICAL: No focal neurological deficits. Moves all extremities spontaneously and on command. PSYCH: Normal mood, normal affect. SKIN: Warm, Dry, normal turgor, no rashes or lesions noted. Course - Re-evaluation Re-evalutation: Patient is a 55-year-old female who presents with left wrist pain after falling onto her outstretched arm prior to arrival. Vital signs are stable and within normal limits. On exam, obvious deformity to the left wrist with tenderness, ecchymosis and swelling. Left wrist XR shows comminuted intra-articular fracture of the distal radial metaphysis with apex four angulation. No proximal fracture. The elbow appears normal. I consulted my supervising physician, Dr. Aguilera, concerning this patient. After evaluating her x-rays at length, he determined that it would be better to not proceed with reduction and call Ortho for consult. I spoke with Dr. Sánchez, orthopedic surgeon emission technician, and he recommended not attempting a reduction as she needs surgery. He advised that she be placed in a volar splint and states that his office will call her on Sunday. Patient informed of my discussions with both physicians and she is in agreement with the plan set in place. Patient splinted here in the ED. Patient will be discharged home with a prescription for Percocet and Zofran. Return precautions and follow-up instructions given. - Vital Signs Vital signs: Temp Pulse Resp BP Pulse Ox 98.4 F 83 20 144/72 H 98 09/11/20 21:15 09/11/20 21:15 09/11/20 21:15 09/11/20 21:15 09/11/20 21:15 - Laboratory Results Critical Laboratory Results Reviewed: No Critical Results - Radiology Results Radiology Results Interpreted: Wrist X-Ray 09/11/20 21:26 IMPRESSION: Intra-articular fracture of the left radial metaphysis with apex volar angulation. Nondisplaced ulnar styloid fracture. Forearm X-Ray 09/11/20 21:27 IMPRESSION: Comminuted intra-articular fracture of the distal radial metaphysis with apex four angulation. No proximal fracture. The elbow appears normal. Critical Radiology Results Reviewed: No Critical Results Procedures - Immobilization Left Volar Wrist Pre-Proc Neuro Vasc Exam: Normal Immobilizer type: Volar splint Post-Proc Neuro Vasc Exam: Normal Alignment checked and good: Yes Discharge - Discharge Clinical Impression: Fracture of distal end of radius with volar angulation Fracture of ulnar styloid Qualifiers: Encounter type: initial encounter Fracture type: closed Fracture alignment: nondisplaced Laterality: left Qualified Code(s): S52.615A - Nondisplaced fracture of left ulna styloid process, initial encounter for closed fracture Condition: Stable Disposition: HOME, SELF-CARE Instructions: Temporary Splint ([facility]) Additional Instructions: Fractured Radius and Ulna Both bones of the forearm, the radius and the ulna, are fractured. This type of fracture is typically caused by falling onto the outstretched hand. The fractures are not serious, however, and should heal well with adequate protection. Your physician's evaluation shows the bones are now in good position to heal. A cast or splint is used to protect the fractures. For the first few days after the injury, the arm should be elevated and ice packed. Most often, a splint is used first, with a cast later on. Healing takes from four to eight weeks, depending on the age of the patient and the seriousness of the broken bones. Your doctor has explained the treatment plan. It's important that you follow up as instructed to prevent complications. Call the doctor or return at once if severe pain or swelling occur, or if the hand becomes numb, swollen, or discolored. Prescriptions: Ondansetron [Zofran Odt 4 mg Tablet] 1 - 2 tab PO Q4HP PRN #15 tab.rapdis PRN Reason: Oxycodone HCl/Acetaminophen [Percocet 5-325 mg Tablet] 1 - 2 tab PO TID PRN #15 tab PRN Reason: Referrals: VAMSHI SÁNCHEZ MD [ACTIVE STAFF] - 09/13/20
[2020-09-12] MEDS ORDERED: HYDROCODONE/ACETAMINOPHEN 5-325 MG (6 TAB/ER DISP) PO PRN (00:44)
[2020-09-12 01:06] VITALS: BP 119/61
== END 2020-09-12 01:05 | disposition home or self-care (01) ==
LOC: ER 20:40
DX: S52.572A Other intraarticular fracture of lower end of left radius, initial encounter for closed fracture (principal); S52.615A Nondisplaced fracture of left ulna styloid process, initial encounter for closed fracture; W19.XXXA Unspecified fall, initial encounter; Y93.01 Activity, walking, marching and hiking
CPT/HCPCS: 99284; 73090; 73110; 29125; A9270 ×2